=== PATIENT | female | born 1950 | race Caucasian/White ===

== ENCOUNTER 2018-10-26 08:37 | Day surgery (SDC) | payer MEDICARE, OTHER ==
[~2018-10-26 08:37] MED LIST: ALLEGRA180 MG PO; ASPIRIN LOW DOS81 M1 PO; CYTOTEC200 MCG PO; EQL B-121000 MCG PO; FLONASE NASAL50 MCG; FOLIC ACID1 MG PO; HYDROXYCHLOR200 MG PO; LAMICTAL150 M1 PO; LASIX40 MG PO; LISINOPRIL10 MG PO; METHOTREXATE25 MG/ML SC; NAPROSYN500 MG PO; PHENERGAN25 MG/TAB PO; TRAMADOL HCL50 MG PO; TRAMADOL HYDROC50 MG; VITAMIN D1000 UNI1 PO; VOLTAREN1%GEL TOP; ZESTRIL10 M1 PO; [UNRECOGNIZED DRUG - OTHER] PO; [UNRECOGNIZED DRUG - OTHER] PO
[2018-10-26 11:51] VITALS: BP 148/75
== END 2018-10-26 12:01 | disposition home or self-care (01) ==
LOC: ENDO 08:37 → ORM 11:00 → ENDO 11:00
PROVIDERS: ATTEND Surgery
PROC: 0DBL8ZX Excision of Transverse Colon, Via Natural or Artificial Opening Endoscopic, Diagnostic (ICD-10-PCS; principal; 2018-10-26)
PROC: 0DBK8ZX Excision of Ascending Colon, Via Natural or Artificial Opening Endoscopic, Diagnostic (ICD-10-PCS; 2018-10-26)
PROC: 0DBH8ZX Excision of Cecum, Via Natural or Artificial Opening Endoscopic, Diagnostic (ICD-10-PCS; 2018-10-26)
PROC: 3E0H8GC Introduction of Other Therapeutic Substance into Lower GI, Via Natural or Artificial Opening Endoscopic (ICD-10-PCS; 2018-10-26)
DX: K57.31 Diverticulosis of large intestine without perforation or abscess with bleeding (principal); D12.0 Benign neoplasm of cecum; D12.3 Benign neoplasm of transverse colon; K63.5 Polyp of colon; K64.8 Other hemorrhoids; I10 Essential (primary) hypertension; Z86.010 Personal history of colon polyps

== ENCOUNTER 2020-05-26 11:49 | Emergency (ER) | payer MEDICARE, OTHER ==
[~2020-05-26] VITALS: Ht 152.4 cm; Wt 77.0 kg
[2020-05-26 13:07] LABS: HEMATOCRIT 20.7 % (37.0-47.0); IMMATURE GRANULOCYTES 0.2 % (0.0-5.0); MEAN CELL VOLUME 65.5 fL CALC (80.0-100.0); MEAN CORPUSCULAR HGB 17.4 pG CALC (26.0-32.0); MEAN CORPUSCULAR HGB CONC 26.6 g/dL CAL (32.0-36.0); NEUT# 3.48 thou/uL (2.00-7.15); RED BLOOD COUNT 3.16 mill/uL (4.20-5.60); RED CELL DISTRI WIDTH 20.5 % (11.5-15.5)
[2020-05-26 13:11] LABS: HEMOGLOBIN 5.5 g/dl (12.0-16.0)
[2020-05-26 13:16] LABS: PROTHROMBIN TIME 9.7 SECONDS (9.0-12.5)
[2020-05-26 13:24] LABS: ALBUMIN 4.2 g/dL (3.2-5.0); BILIRUBIN, TOTAL 0.2 mg/dL (0.0-1.4); CREATININE 1.3 mg/dL (0.5-1.0); POTASSIUM 4.5 mmol/l (3.5-5.1)
[2020-05-26 15:02] VITALS: BP 137/62
[2020-05-26 15:11] VITALS: BP 127/54
[2020-05-26 15:18] VITALS: BP 149/70
[2020-05-26 16:00] VITALS: BP 149/67
[2020-05-26 16:51] VITALS: BP 147/66
[2020-05-26 16:55] VITALS: BP 147/66
== END 2020-05-26 17:03 | disposition left against medical advice (07) ==
LOC: ED 11:49 → ED-I 13:35 → ED 17:03
PROVIDERS: Family Medicine
PROC: 30233N1 Transfusion of Nonautologous Red Blood Cells into Peripheral Vein, Percutaneous Approach (ICD-10-PCS; principal; 2020-05-26)
DX: D64.9 Anemia, unspecified (principal); I10 Essential (primary) hypertension; M06.9 Rheumatoid arthritis, unspecified; Z91.19 Patient's noncompliance with other medical treatment and regimen
CPT/HCPCS: P9016

== ENCOUNTER 2020-05-27 07:11 | Emergency (ER) | payer MEDICARE, OTHER ==
[~2020-05-27] VITALS: Ht 152.4 cm; Wt 77.3 kg
[2020-05-27 07:45] LABS: HEMATOCRIT 24.5 % (37.0-47.0); IMMATURE GRANULOCYTES 0.6 % (0.0-5.0); MEAN CORPUSCULAR HGB 19.3 pG CALC (26.0-32.0); MEAN CORPUSCULAR HGB CONC 27.8 g/dL CAL (32.0-36.0); NEUT# 1.91 thou/uL (2.00-7.15); RED BLOOD COUNT 3.52 mill/uL (4.20-5.60); RED CELL DISTRI WIDTH 24.3 % (11.5-15.5)
[2020-05-27 07:53] LABS: HEMOGLOBIN 6.8 g/dl (12.0-16.0); MEAN CELL VOLUME 69.6 fL CALC (80.0-100.0)
[2020-05-27 08:10] LABS: CREATININE 1.2 mg/dL (0.5-1.0); POTASSIUM 4.3 mmol/l (3.5-5.1)
[2020-05-27 10:35] VITALS: BP 133/70
[2020-05-27 10:55] VITALS: BP 135/60
[2020-05-27 11:40] VITALS: BP 138/65
[2020-05-27 12:32] VITALS: BP 146/81
[2020-05-27 13:14] VITALS: BP 146/81
== END 2020-05-27 13:21 | disposition home or self-care (01) ==
LOC: ED 07:11
PROVIDERS: Family Medicine
PROC: 30233N1 Transfusion of Nonautologous Red Blood Cells into Peripheral Vein, Percutaneous Approach (ICD-10-PCS; principal; 2020-05-27)
DX: D64.9 Anemia, unspecified (principal); I10 Essential (primary) hypertension; M06.9 Rheumatoid arthritis, unspecified
CPT/HCPCS: P9016

== ENCOUNTER 2020-07-17 08:26 | Day surgery (SDC) | payer MEDICARE, OTHER ==
[~2020-07-17] VITALS: Ht 152.4 cm; Wt 72.6 kg
[~2020-07-17 08:26] MED LIST changes: +MULTI VIT PO; +VITAMIN B-12500 MCG PO; +VITAMIN D33000 UNIT PO; +VITAMIN E400 UNIT PO
[2020-07-17 11:41] VITALS: BP 110/54
== END 2020-07-17 11:31 | disposition home or self-care (01) ==
LOC: ENDO 08:26 → ORM 09:45 → ENDO 09:45
PROVIDERS: ATTEND Surgery
PROC: 0DBH8ZX Excision of Cecum, Via Natural or Artificial Opening Endoscopic, Diagnostic (ICD-10-PCS; principal; 2020-07-17)
PROC: 0DBL8ZX Excision of Transverse Colon, Via Natural or Artificial Opening Endoscopic, Diagnostic (ICD-10-PCS; 2020-07-17)
PROC: 0DBF8ZX Excision of Right Large Intestine, Via Natural or Artificial Opening Endoscopic, Diagnostic (ICD-10-PCS; 2020-07-17)
PROC: 0DB48ZX Excision of Esophagogastric Junction, Via Natural or Artificial Opening Endoscopic, Diagnostic (ICD-10-PCS; 2020-07-17)
PROC: 0DB78ZX Excision of Stomach, Pylorus, Via Natural or Artificial Opening Endoscopic, Diagnostic (ICD-10-PCS; 2020-07-17)
DX: D64.9 Anemia, unspecified (principal); D12.0 Benign neoplasm of cecum; D12.2 Benign neoplasm of ascending colon; K51.40 Inflammatory polyps of colon without complications; K57.30 Diverticulosis of large intestine without perforation or abscess without bleeding; K64.8 Other hemorrhoids; K64.4 Residual hemorrhoidal skin tags; K29.70 Gastritis, unspecified, without bleeding; K44.9 Diaphragmatic hernia without obstruction or gangrene; K22.9 Disease of esophagus, unspecified; G40.909 Epilepsy, unspecified, not intractable, without status epilepticus; Z86.010 Personal history of colon polyps; Z87.11 Personal history of peptic ulcer disease; Z20.822 Contact with and (suspected) exposure to COVID-19